=== PATIENT | male | born 1975 | race Caucasian/White ===

== ENCOUNTER 2020-10-29 11:31 | Inpatient (IN) | payer MEDICARE ==
[~2020-10-29] VITALS: Ht 188 cm; Wt 100.7 kg
[~2020-10-29 11:31] MED LIST: BACTROBAN NASAL1 G1 TOP; KEFLEX CAP 500500 MG PO
[2020-10-29 12:31] LABS: HEMOGLOBIN 14.3 gm/dl (14.0-17.5); RED BLOOD COUNT 5.05 M/UL (4.20-5.50); WHITE BLOOD COUNT 24.4 K/UL (4.5-11.0)
[2020-10-29 13:00] LABS: BUN/CREATININE RATIO 16 (0-10)
[2020-10-29] MEDS ORDERED: NEURONTIN800 MG PO (16:53)
[2020-10-29] MEDS ORDERED: SUBOXONE 8 MG-1 EACH SL (16:53)
[2020-10-29] MEDS ORDERED: ZESTRIL5 MG PO (16:54)
[2020-10-29] MEDS ORDERED: TYLENOL 500 MG500 MG PO (16:56)
[2020-10-29] MEDS ORDERED: NOVOLOG 10100 UNITS/ INJ (16:56)
[2020-10-29] MEDS ORDERED: LIPITOR10 MG PO (16:57)
[2020-10-29 17:50] LABS: ADENOVIRUS F 40/41 Not Detected (Negative); ASTROVIRUS Not Detected (Negative); CAMPYLOBACTER Not Detected (Negative); CRYPTOSPORIDIUM Not Detected (Negative); E.COLI 0157 Not Detected (Negative); ENTAMOEBA HISTOLYTICA Not Detected (Negative); ENTEROAGGREGATIVE E.COLI (EAEC Not Detected (Negative); ENTEROPATHOGENIC E.COLI (EPEC) Not Detected (Negative); ENTEROTOXIGENIC E.COLI (ETEC) Not Detected (Negative); GIARDIA LAMBLIA Not Detected (Negative); NOROVIRUS GI/GII Not Detected (Negative); PLESIOMONAS SHIGELLOIDES Not Detected (Negative); ROTOVIRUS A Not Detected (Negative); SALMONELLA Not Detected (Negative); SAPOVIRUS Not Detected (Negative); SHIG/ENTEROINVAS.ECOLI (EIEC) Not Detected (Negative); SHIGA-LIK TOX.PRO.E.COLI (STEC Not Detected (Negative); VIBRIO Not Detected (Negative); VIBRIO CHOLERAE Not Detected (Negative); YERSINIA ENTEROCOLITICA Not Detected (Negative)
[2020-10-30 03:16] LABS: HEMOGLOBIN 12.4 gm/dl (14.0-17.5)
[2020-10-30 03:17] LABS: RED BLOOD COUNT 4.28 M/UL (4.20-5.50); WHITE BLOOD COUNT 16.3 K/UL (4.5-11.0)
[2020-10-30 03:45] LABS: BUN/CREATININE RATIO 17 (0-10)
[2020-10-30 08:30] LABS: CLOSTRIDIUM DIFFICILE TOX A/B DETECTED (Negative)
--- NOTE | 2020-10-30 10:04 | NUR ---
INFORMED PATIENT OF HIS BS RESULT. INDEPENDENT OF CORRECTION. PATIENT WITH HIS OWN INSULIN PUMP.
[2020-10-31 06:29] LABS: HEMOGLOBIN 12.4 gm/dl (14.0-17.5); RED BLOOD COUNT 4.25 M/UL (4.20-5.50)
[2020-10-31 06:40] LABS: WHITE BLOOD COUNT 8.5 K/UL (4.5-11.0)
[2020-10-31 07:03] LABS: BUN/CREATININE RATIO 6 (0-10)
[2020-10-31] MEDS ORDERED: VANCOMYCIN HCL250 MG PO (17:09)
== END 2020-10-31 18:45 | disposition home or self-care (01) | DRG 872 ==
LOC: ER1 11:31 → M/S 16:10 → ZEROF 16:10 → M/S 22:01
PROVIDERS: Physician Assistant; Physician Assistant Medical; ADMIT Internal Medicine
DX: A41.89 Other specified sepsis (principal); A04.72 Enterocolitis due to Clostridium difficile, not specified as recurrent; R65.20 Severe sepsis without septic shock; E86.0 Dehydration; F17.210 Nicotine dependence, cigarettes, uncomplicated; E10.621 Type 1 diabetes mellitus with foot ulcer; L97.519 Non-pressure chronic ulcer of other part of right foot with unspecified severity; Z96.41 Presence of insulin pump (external) (internal); Z79.4 Long term (current) use of insulin; Z20.822 Contact with and (suspected) exposure to COVID-19; E10.65 Type 1 diabetes mellitus with hyperglycemia; T36.8X5A Adverse effect of other systemic antibiotics, initial encounter
CPT/HCPCS: 36415; 80048; 80053; 82550; 82553; 82962; 83605; 83874; 84484; 85025; 85027; 87040; 87449; 87507; 96365; 96372; 96375; 96376; 99285; J1956; J2270; J2405; J7030; Q9967; U0002

== ENCOUNTER → 2021-08-01 | Outpatient (CLI) | payer MEDICARE ==
[~2021-08-01] MED LIST changes: +LIPITOR10 MG PO; +NEURONTIN800 MG PO; +NOVOLOG 10100 UNITS/ INJ; +SUBOXONE 8 MG-1 EACH SL; +TYLENOL 500 MG500 MG PO; +VANCOMYCIN HCL250 MG PO; +ZESTRIL5 MG PO
== END ==
LOC: WCC 09:14
DX: E10.621 Type 1 diabetes mellitus with foot ulcer (principal); L97.512 Non-pressure chronic ulcer of other part of right foot with fat layer exposed; E10.65 Type 1 diabetes mellitus with hyperglycemia; E10.21 Type 1 diabetes mellitus with diabetic nephropathy; E10.42 Type 1 diabetes mellitus with diabetic polyneuropathy; I10 Essential (primary) hypertension; F17.210 Nicotine dependence, cigarettes, uncomplicated; Z96.41 Presence of insulin pump (external) (internal); Z79.899 Other long term (current) drug therapy
CPT/HCPCS: 87070; 87077; 87186; 87205

== ENCOUNTER → 2021-08-15 | Outpatient (CLI) | payer MEDICARE | LOC: WCC 01:54 | DX: E10.621 Type 1 diabetes mellitus with foot ulcer (principal); L97.512 Non-pressure chronic ulcer of other part of right foot with fat layer exposed; E10.65 Type 1 diabetes mellitus with hyperglycemia; E10.21 Type 1 diabetes mellitus with diabetic nephropathy; E10.42 Type 1 diabetes mellitus with diabetic polyneuropathy; I10 Essential (primary) hypertension; Z96.41 Presence of insulin pump (external) (internal); F11.20 Opioid dependence, uncomplicated; F17.210 Nicotine dependence, cigarettes, uncomplicated ==

== ENCOUNTER → 2021-09-04 | Outpatient (CLI) | payer MEDICARE | END | disposition home or self-care (01) | LOC: WCC 08:45 | DX: E10.621 Type 1 diabetes mellitus with foot ulcer (principal); L97.511 Non-pressure chronic ulcer of other part of right foot limited to breakdown of skin; E10.65 Type 1 diabetes mellitus with hyperglycemia; E10.21 Type 1 diabetes mellitus with diabetic nephropathy; E10.42 Type 1 diabetes mellitus with diabetic polyneuropathy; I10 Essential (primary) hypertension; F17.200 Nicotine dependence, unspecified, uncomplicated; F11.20 Opioid dependence, uncomplicated; Z96.41 Presence of insulin pump (external) (internal) ==

== ENCOUNTER → 2021-09-12 | Outpatient (CLI) | payer MEDICARE | LOC: WCC 07:59 | DX: E10.621 Type 1 diabetes mellitus with foot ulcer (principal); L97.512 Non-pressure chronic ulcer of other part of right foot with fat layer exposed; E10.65 Type 1 diabetes mellitus with hyperglycemia; E10.21 Type 1 diabetes mellitus with diabetic nephropathy; E10.42 Type 1 diabetes mellitus with diabetic polyneuropathy; F17.210 Nicotine dependence, cigarettes, uncomplicated; I10 Essential (primary) hypertension; F11.20 Opioid dependence, uncomplicated; Z96.41 Presence of insulin pump (external) (internal); Z79.899 Other long term (current) drug therapy ==

== ENCOUNTER → 2021-09-12 | Outpatient (CLI) | payer MEDICARE | LOC: RAD 11:15 | DX: E10.621 Type 1 diabetes mellitus with foot ulcer (principal); L97.419 Non-pressure chronic ulcer of right heel and midfoot with unspecified severity; E10.65 Type 1 diabetes mellitus with hyperglycemia; E10.42 Type 1 diabetes mellitus with diabetic polyneuropathy; E10.21 Type 1 diabetes mellitus with diabetic nephropathy; I10 Essential (primary) hypertension; F11.20 Opioid dependence, uncomplicated; M79.671 Pain in right foot; M19.071 Primary osteoarthritis, right ankle and foot; Z72.0 Tobacco use; Z96.41 Presence of insulin pump (external) (internal) | CPT/HCPCS: 73630 ==

== ENCOUNTER → 2021-09-25 | Outpatient (CLI) | payer MEDICARE | LOC: KOH-I 09:45 | DX: E10.621 Type 1 diabetes mellitus with foot ulcer (principal); L97.519 Non-pressure chronic ulcer of other part of right foot with unspecified severity; L03.115 Cellulitis of right lower limb | CPT/HCPCS: 73718 ==

== ENCOUNTER → 2021-09-26 | Outpatient (CLI) | payer MEDICARE | LOC: WCC 08:10 | DX: E10.621 Type 1 diabetes mellitus with foot ulcer (principal); L97.511 Non-pressure chronic ulcer of other part of right foot limited to breakdown of skin; I10 Essential (primary) hypertension; E10.65 Type 1 diabetes mellitus with hyperglycemia; E10.42 Type 1 diabetes mellitus with diabetic polyneuropathy; E10.21 Type 1 diabetes mellitus with diabetic nephropathy; Z72.0 Tobacco use; Z96.41 Presence of insulin pump (external) (internal); F11.20 Opioid dependence, uncomplicated | CPT/HCPCS: 87070; 87077; 87186; 87205 ==

== ENCOUNTER → 2021-10-03 | Outpatient (CLI) | payer MEDICARE | LOC: WCC 07:42 | DX: E10.621 Type 1 diabetes mellitus with foot ulcer (principal); E10.42 Type 1 diabetes mellitus with diabetic polyneuropathy; E10.65 Type 1 diabetes mellitus with hyperglycemia; E10.21 Type 1 diabetes mellitus with diabetic nephropathy; L97.519 Non-pressure chronic ulcer of other part of right foot with unspecified severity; I10 Essential (primary) hypertension; F11.20 Opioid dependence, uncomplicated; Z72.0 Tobacco use; Z96.41 Presence of insulin pump (external) (internal) | CPT/HCPCS: 97597 ==

== ENCOUNTER → 2021-10-08 | Outpatient (CLI) | payer MEDICARE | END | disposition home or self-care (01) | LOC: WCC 07:51 | PROC: 0JBN0ZZ Excision of Right Lower Leg Subcutaneous Tissue and Fascia, Open Approach (ICD-10-PCS; principal; 2021-10-08) | DX: L59.8 Other specified disorders of the skin and subcutaneous tissue related to radiation (principal); L97.105 Non-pressure chronic ulcer of unspecified thigh with muscle involvement without evidence of necrosis; M19.90 Unspecified osteoarthritis, unspecified site; Z74.09 Other reduced mobility; Z79.1 Long term (current) use of non-steroidal anti-inflammatories (NSAID); Z79.891 Long term (current) use of opiate analgesic; Z79.899 Other long term (current) drug therapy; Z92.3 Personal history of irradiation; Y84.2 Radiological procedure and radiotherapy as the cause of abnormal reaction of the patient, or of later complication, without mention of misadventure at the time of the procedure; Y78.8 Miscellaneous radiological devices associated with adverse incidents, not elsewhere classified ==

== ENCOUNTER → 2021-10-15 | Outpatient (CLI) | payer MEDICARE | LOC: WCC 08:27 | DX: E10.621 Type 1 diabetes mellitus with foot ulcer (principal); L97.519 Non-pressure chronic ulcer of other part of right foot with unspecified severity; E10.65 Type 1 diabetes mellitus with hyperglycemia; E10.21 Type 1 diabetes mellitus with diabetic nephropathy; E10.42 Type 1 diabetes mellitus with diabetic polyneuropathy; I10 Essential (primary) hypertension; F11.20 Opioid dependence, uncomplicated; M79.671 Pain in right foot; Z72.0 Tobacco use; Z96.41 Presence of insulin pump (external) (internal) | CPT/HCPCS: G0463 ==

== ENCOUNTER → 2021-11-04 | Outpatient (CLI) | payer MEDICARE | LOC: WCC 07:34 | DX: E10.621 Type 1 diabetes mellitus with foot ulcer (principal); E10.65 Type 1 diabetes mellitus with hyperglycemia; E10.21 Type 1 diabetes mellitus with diabetic nephropathy; E10.42 Type 1 diabetes mellitus with diabetic polyneuropathy; L97.519 Non-pressure chronic ulcer of other part of right foot with unspecified severity; I10 Essential (primary) hypertension; F11.20 Opioid dependence, uncomplicated; M79.671 Pain in right foot; Z96.41 Presence of insulin pump (external) (internal); Z72.0 Tobacco use | CPT/HCPCS: 97597 ==

== ENCOUNTER → 2021-12-18 | Outpatient (CLI) | payer MEDICARE | LOC: WCC 09:03 | DX: E10.621 Type 1 diabetes mellitus with foot ulcer (principal); L97.412 Non-pressure chronic ulcer of right heel and midfoot with fat layer exposed; E10.65 Type 1 diabetes mellitus with hyperglycemia; E10.21 Type 1 diabetes mellitus with diabetic nephropathy; I10 Essential (primary) hypertension; F11.20 Opioid dependence, uncomplicated; M79.671 Pain in right foot; Z96.41 Presence of insulin pump (external) (internal); Z72.0 Tobacco use ==

== ENCOUNTER → 2021-12-29 | Outpatient (CLI) | payer MEDICARE | LOC: WCC 07:43 | DX: E10.621 Type 1 diabetes mellitus with foot ulcer (principal); L97.412 Non-pressure chronic ulcer of right heel and midfoot with fat layer exposed; E10.65 Type 1 diabetes mellitus with hyperglycemia; E10.21 Type 1 diabetes mellitus with diabetic nephropathy; I10 Essential (primary) hypertension; F11.20 Opioid dependence, uncomplicated; M79.671 Pain in right foot; E10.42 Type 1 diabetes mellitus with diabetic polyneuropathy; Z96.41 Presence of insulin pump (external) (internal); Z72.0 Tobacco use ==

== ENCOUNTER → 2022-01-23 | Outpatient (CLI) | payer MEDICARE | LOC: WCC 08:59 | DX: E10.621 Type 1 diabetes mellitus with foot ulcer (principal); E10.65 Type 1 diabetes mellitus with hyperglycemia; E10.40 Type 1 diabetes mellitus with diabetic neuropathy, unspecified; E10.21 Type 1 diabetes mellitus with diabetic nephropathy; I10 Essential (primary) hypertension; F11.20 Opioid dependence, uncomplicated; Z72.0 Tobacco use | CPT/HCPCS: G0463 ==